=== PATIENT | female | born 1950 | race Caucasian/White ===

== ENCOUNTER 2018-07-18 12:44 | Emergency (ER) | payer OTHER ==
[~2018-07-18] VITALS: Ht 160 cm; Wt 68.9 kg
[~2018-07-18 12:44] MED LIST: ALPR0.5T2 PO; BUPR100T3 PO; GLIM2TAB PO; INSU10SU8 SUBQ; METF100028 PO; NAPR-54 PO; RANI-287 PO; WARF-18 PO; [UNRECOGNIZED DRUG - CODE] IV; [UNRECOGNIZED DRUG - CODE] TP
[2018-07-18 12:51] VITALS: BP 123/68
--- NOTE | 2018-07-18 13:11 | NUR ---
67/F BIB FRIEND C/O NAUSEA,HEADACHE & HEMATOMA S/P FALL BACKWARDS X TODAY. DENIES LOC. HX: DM2, ANXIETY, NON ALCOHOLIC CIRROHSIS, LOW PLT COUNT. SKIN IS PINK/WARM/DRY; AAOX4 WITH EVEN AND STEADY GAIT; LUNGS CLEAR BL; HR EVEN AND REGULAR. PATIENT STATES PAIN OF 10/10 AT THIS TIME; PATIENT POSITIONED FOR COMFORT; HOB ELEVATED; BEDRAILS UP X2; BED DOWN. ER MD MADE AWARE OF PT STATUS.
[2018-07-18] MEDS ORDERED: traMADol 50 MG TAB PO ONE (13:25)
--- NOTE | 2018-07-18 13:43 | NUR ---
LAB AT BEDSIDE
--- NOTE | 2018-07-18 13:48 | NUR ---
PT TAKEN TO CT, ACCOMPANIED BY LOADING INSPECTOR.
[2018-07-18 14:00] LABS: BASOPHILS % (AUTO) 1.1 % (0.0-2.0); EOSINOPHILS # (AUTO) 0.1 K/uL (0-0.4); EOSINOPHILS % (AUTO) 2.1 % (0.0-4.0); HEMOGLOBIN 11.8 g/dL (12.0-16.0); LYMPHOCYTES # (AUTO) 0.7 K/uL (2.5-16.5); LYMPHOCYTES % (AUTO) 19.8 % (20.5-51.1); MEAN CORPUSCULAR HEMOGLOBIN 29 pg (27-31); MEAN CORPUSCULAR HGB CONC 33 g/dL (33-37); MONOCYTES # (AUTO) 0.2 K/uL (0.8-1.0); MONOCYTES % (AUTO) 6.4 % (1.7-9.3); NEUTROPHILS # (AUTO) 2.3 K/uL (1.8-7.7); NEUTROPHILS % (AUTO) 70.6 % (42.2-75.2); PLATELET COUNT (AUTO) 35 K/uL (140-450); RED BLOOD CELL COUNT(AUTO) 4.05 MIL/uL (4.20-5.40); RED CELL DISTRIBUTION WIDTH 15.9 % (11.6-13.7); WHITE BLOOD COUNT (AUTO) 3.3 K/uL (4.8-10.8)
--- NOTE | 2018-07-18 14:04 | NUR ---
pt returned from ct via [facility], accompanied by radio control crane operator.
[2018-07-18 14:47] LABS: PROTHROMBIN TIME 10.6 secs (10.8-13.4)
[2018-07-18 15:28] VITALS: BP 118/55
--- NOTE | 2018-07-18 15:28 | NUR ---
Patient discharged with v/s stable. Written and verbal after care instructions given and explained. Patient verbalized understanding. Wheel Chair Assisted with to car. All questions addressed prior to discharge. Advised to follow up with PMD.
== END 2018-07-18 15:22 | disposition home or self-care (01) ==
LOC: MED 12:44
DX: S00.03XA Contusion of scalp, initial encounter (principal); D69.6 Thrombocytopenia, unspecified; E11.9 Type 2 diabetes mellitus without complications; I10 Essential (primary) hypertension; Z88.5 Allergy status to narcotic agent; Z88.0 Allergy status to penicillin; Z79.4 Long term (current) use of insulin; Z79.899 Other long term (current) drug therapy; W01.0XXA Fall on same level from slipping, tripping and stumbling without subsequent striking against object, initial encounter; Y93.89 Activity, other specified; Y92.89 Other specified places as the place of occurrence of the external cause; Y99.8 Other external cause status
CPT/HCPCS: 36415; 70450; 85025; 85610; 99285

== ENCOUNTER 2022-02-13 11:36 | Inpatient (IN) | payer OTHER ==
[~2022-02-13] VITALS: Ht 160 cm; Wt 76.7 kg
[~2022-02-13 11:36] MED LIST changes: -INSU10SU8 SUBQ; +NOV7030 SUBQ; -WARF-18 PO; +WARF-83 PO
[2022-02-13 12:09] VITALS: BP 129/55
--- NOTE | 2022-02-13 12:18 | NUR ---
PT W/C ASSISTED TO BED 4.
--- NOTE | 2022-02-13 12:45 | NUR ---
BIB DAUGHTER WITH C/O ABD DISTENTION X1 MONTH GETTING WORSE. PT HAS CIRRHOSIS OF THE LIVER. PT STATES SHE HAS NEVER HAD A PARACENTESIS BEFORE. PT RECEIVES LIVER CARE AT [facility] AND WAS LAST SEEN LAST FRIDAY. PT REPORTS ASSOCIATED NAUSEA, NO VOMITING AND SOB. RESP EVEN AND UNLABORED. NO RESP DISTRESS. PT C/O R SIDED ABD PAIN, 8/10 AND DESCRIBES NAWING. VSS. WILL CONT TO MONITOR
[2022-02-13 13:08] LABS: BASOPHILS % (AUTO) 0.9 % (0.0-2.0); EOSINOPHILS # (AUTO) 0.1 K/uL (0-0.4); EOSINOPHILS % (AUTO) 2.2 % (0.0-4.0); HEMATOCRIT 30.4 % (36-48); HEMOGLOBIN 9.5 g/dL (12.0-16.0); LYMPHOCYTES # (AUTO) 0.6 K/uL (2.5-16.5); LYMPHOCYTES % (AUTO) 20.7 % (20.5-51.1); MEAN CORPUSCULAR HEMOGLOBIN 26 pg (27-31); MEAN CORPUSCULAR HGB CONC 31 g/dL (33-37); MEAN CORPUSCULAR VOLUME 83.5 fL (80-94); MONOCYTES # (AUTO) 0.3 K/uL (0.8-1.0); MONOCYTES % (AUTO) 9.7 % (1.7-9.3); NEUTROPHILS % (AUTO) 66.5 % (42.2-75.2); PLATELET COUNT (AUTO) 53 K/uL (140-450); RED BLOOD CELL COUNT(AUTO) 3.64 MIL/uL (4.20-5.40); RED CELL DISTRIBUTION WIDTH 18.6 % (11.6-13.7)
[2022-02-13 13:21] LABS: PROTHROMBIN TIME 11.1 secs (10.8-13.4)
--- NOTE | 2022-02-13 15:00 | NUR ---
PT IN BED RESTING. REPORTS 8/10 ABD PAIN. NO N/V. RESP EVEN AND UNLABORED. VSS. WILL CONT TO MONITOR
[2022-02-13 15:14] LABS: ALBUMIN 3.1 g/dL (3.4-5.0); ANION GAP 10.1 (8-16); CARBON DIOXIDE 24.1 mmol/L (21-32); CREATININE 1.6 mg/dL (0.6-1.3); POTASSIUM 4.2 mmol/L (3.5-5.1); TOTAL BILIRUBIN 1.5 mg/dL (0.0-1.0)
[2022-02-13] MEDS ORDERED: ONDANSETRON 4 MG/2 ML VIAL IVP ONE (15:20)
[2022-02-13] MEDS ORDERED: MORPHINE SULFATE 4 MG/ML SYR IVP ONE (15:20)
[2022-02-13] MEDS ORDERED: MAG SULF 2000 MG/WATER PREMIX 50 ML IV PRN (15:40)
[2022-02-13] MEDS ORDERED: DOCUSATE SODIUM 100 MG GELCAP PO PRN (15:40)
[2022-02-13] MEDS ORDERED: ZOLPIDEM 5 MG TAB PO PRN (15:40)
[2022-02-13] MEDS ORDERED: ACETAMINOPHEN 325 MG TAB PO PRN (15:40)
[2022-02-13] MEDS ORDERED: ONDANSETRON 4 MG/2 ML VIAL IVP PRN (15:40)
[2022-02-13] MEDS ORDERED: NACL 0.9% 1,000 ML IV SCH (15:40)
[2022-02-13] MEDS ORDERED: POTASSIUM CHLORIDE 10 MEQ TABER PO PRN (15:40)
[2022-02-13] MEDS ORDERED: SODIUM PHOS / POTASSIUM PHOS 1 PKT PDR PO PRN (15:40)
[2022-02-13] MEDS ORDERED: LORazepam 1 MG TAB PO PRN (15:50)
--- NOTE | 2022-02-13 15:52 | NUR ---
COVID SWAB SENT TO LAB
[2022-02-13 16:11] LABS: BILIRUBIN,URINE NEGATIVE (NEGATIVE); BLOOD, URINE NEGATIVE (NEGATIVE); COLOR,URINE YELLOW (YELLOW); LEUKOCYTE ESTERASE ,URINE TRACE (NEGATIVE); NITRITE, URINE NEGATIVE (NEGATIVE); UGLUCOSE 1+ (NEGATIVE)
[2022-02-13 16:14] LABS: AMYLASE 28 U/L (25-115); LIPASE 92 U/L (73-393); PHOSPHORUS 3.1 mg/dL (2.5-4.9)
[2022-02-13 16:16] LABS: APPEARANCE,URINE HAZY (CLEAR)
[2022-02-13] MEDS ORDERED: DEXTROSE 50% 50 ML SYR IVP PRN (16:25)
[2022-02-13] MEDS: BLOOD GLUCOSE MONITORING 1 DEV DEV FS SCH ×3 (16:30→21:00)
[2022-02-13] MEDS ORDERED: FUROSEMIDE 20 MG/2 ML VIAL IVP SCH (17:00)
[2022-02-13 17:30] VITALS: BP 112/55
--- NOTE | 2022-02-13 17:30 | NUR ---
PATIENT ARRIVED ON A GURNEY WHEELED BY 2 ED NURSE. PATIENT AMBULATE FROM GURNEY TO HER BED. ALERT ORIENTED. RESPIRATION EVEN AND NOT LABORED. ASSISTED PATIENT TO BE SITUATED ON HER BED. FÁTIMA MONTEMAYOR GAVE BED SIDE REPORT FOR CONTINUITY OF CARE.
--- NOTE | 2022-02-13 17:35 | NUR ---
ORIENTED PATIENT TO ROOM CALL LIGHT, TV, VISITING HOURS AND MEAL TIME.
--- NOTE | 2022-02-13 17:35 | NUR ---
PT TRANSPORTED TO ROOM 125B ON RESEARCH CHEMIST WITH RN AND EMT. VSS. BEDSIDE REPORT GIVEN TO MARIXA SHINE, QUESTIONS ANSWERED. PT STABLE FOR TRANSFER TO FLOOR.
--- NOTE | 2022-02-13 17:50 | NUR ---
LEFT MESSAGE TO DR. MAYFIELD IF THE PATIENT CAN EAT. PATIENT VERBALIZED VERY HUNGRY. DR. MAYFIELD ORDER REGULAR DIET AND DISCONTINUE IV HYDRATION.
--- NOTE | 2022-02-13 18:01 | NUR ---
SCHEDULED MEDICATIONS DUE GIVEN. WILL CONTINUE TO MONITOR.
[2022-02-13 18:34] LABS: RBC,URINE NONE SEEN /HPF (0-5)
--- NOTE | 2022-02-13 19:20 | NUR ---
PATIENT ON STABLE CONDITION GAVE REPORT TO SBA UNDERWRITER NURSE FOR CONTINUITY OF CARE.
[2022-02-13 20:00] VITALS: BP 112/50
--- NOTE | 2022-02-13 20:00 | NUR ---
Rceive in bed is awake alert on Room AIR Abdomen is distended with Ascites. States iti is uncomfortabe is looking forward to have Paracentesis
[2022-02-13] MEDS: INSULIN LISPRO SLIDING SCALE 100 UNITS/ML VIAL SUBQ PRN (20:27)
[2022-02-13] MEDS: MORPHINE SULFATE 2 MG/ML SYR IVP PRN (22:01)
[2022-02-14] VITALS: BP 122/57
[2022-02-14 04:00] VITALS: BP 123/62
--- NOTE | 2022-02-14 05:40 | NUR ---
slept for short intervals wants to know what time she will have paracentesis Explained to her she will be informed before it is done
[2022-02-14 06:10] LABS: BASOPHILS % (AUTO) 1.3 % (0.0-2.0); EOSINOPHILS # (AUTO) 0.1 K/uL (0-0.4); EOSINOPHILS % (AUTO) 2.8 % (0.0-4.0); HEMATOCRIT 27.6 % (36-48); HEMOGLOBIN 8.9 g/dL (12.0-16.0); LYMPHOCYTES # (AUTO) 0.6 K/uL (2.5-16.5); LYMPHOCYTES % (AUTO) 20.9 % (20.5-51.1); MEAN CORPUSCULAR HEMOGLOBIN 27 pg (27-31); MEAN CORPUSCULAR HGB CONC 32 g/dL (33-37); MEAN CORPUSCULAR VOLUME 82.6 fL (80-94); MONOCYTES # (AUTO) 0.3 K/uL (0.8-1.0); MONOCYTES % (AUTO) 12.2 % (1.7-9.3); NEUTROPHILS # (AUTO) 1.8 K/uL (1.8-7.7); NEUTROPHILS % (AUTO) 62.8 % (42.2-75.2); PLATELET COUNT (AUTO) 48 K/uL (140-450); RED BLOOD CELL COUNT(AUTO) 3.34 MIL/uL (4.20-5.40); RED CELL DISTRIBUTION WIDTH 18.2 % (11.6-13.7); WHITE BLOOD COUNT (AUTO) 2.8 K/uL (4.8-10.8)
[2022-02-14 06:22] LABS: ALBUMIN 2.8 g/dL (3.4-5.0); ANION GAP 10.6 (8-16); CARBON DIOXIDE 25.1 mmol/L (21-32); CREATININE 1.6 mg/dL (0.6-1.3); POTASSIUM 4.7 mmol/L (3.5-5.1); TOTAL BILIRUBIN 1.3 mg/dL (0.0-1.0)
[2022-02-14] MEDS: BLOOD GLUCOSE MONITORING 1 DEV DEV FS SCH ×4 (07:30→20:08)
[2022-02-14 08:00] VITALS: BP 117/60
[2022-02-14] MEDS: MORPHINE SULFATE 2 MG/ML SYR IVP PRN ×3 (09:34→22:17)
--- NOTE | 2022-02-14 09:37 | NUR ---
PATIENT HAS BEEN SCREENED AND CATEGORIZED HIGH NUTRITION RISK. PATIENT WILL BE SEEN WITHIN 1-2 DAYS OF ADMISSION. / REFERRAL FOR NAUSEA OVER THREE DAYS [address]
[2022-02-14 12:00] VITALS: BP 115/64
[2022-02-14] MEDS ORDERED: ALBUMIN HUMAN 25% 50 ML IV SCH (12:30)
[2022-02-14] MEDS: FUROSEMIDE 40 MG/4 ML VIAL IVP SCH (13:00)
--- NOTE | 2022-02-14 13:41 | NUR ---
DC PLANNING: THE PATIENT PRESENTED WITH C/O PROGRESSIVE ABDOMINAL DISTENTION, SOB AND ABDOMINAL PAIN. H/O LIVER FAILURE AND CIRRHOSIS, THE PATIENT HAS BEEN UNABLE TO ARRANGE FOR A PARACENTESIS AT [facility] WHICH IS WHERE SHE GOES FOR HEPATOLOGY MANAGEMENT. H/O DM AND HTN, ABDOMINAL US DONE, PLAN FOR PARACENTESIS TODAY. STARTED ON LASIX IV, ALBUMIN, CONSULTS ORDERED WITH GI AND NEPHRO. CM SPOKE WITH THE PATIENT AT BEDSIDE AND CONFIRMED HER ADDRESS AND PHONE NUMBER. HER EMERGENCY CONTACT IS HER SON CHETAN, PHONE [phone]. SHE LIVES IN A 2 STORY HOUSE WITH SON AND DAUGHTER IN [place]. SHE IS INDEPENDENT WITH ADL'S AND AMBULATION. SHE USES A CANE AND HAS OTHER DME OF A FWW AND WC. SHE WAS ON SERVICE WITH [employer] AND [employer] AND HAS BEEN TO [facility] AND ANOTHER SNF SHE CAN'T REMEMBER THE NAME OF. HER FAMILY TRANSPORTS HER TO APPOINTMENTS BUT SHE IS ALSO ABLE TO DRIVE. HER PMD IS JESSE ESIPNOZA IN [place] AND SHE SEES HIM MONTHLY. SHE IS ALSO FOLLOWED BY [facility] AND HAS A PLANNED PROCEDURE OF REMOVING A SCREW FROM [facility]. SHE WILL GET CARDIAC CLEARANCE ON FEBRUARY 21. THE PATIENT IS ON ACTIGALL AND LACTULOSE AT HOME BUT HAS ISSUES WITH COMPLIANCE TAKING LACTULOSE BECAUSE OF THE SIDE EFFECTS. THE PATIENT WILL DC HOME WHEN CLINICALLY STABLE, RENUKA WILL FOLLOW. Addendum: 02/15/22 at 1118 by Alexa Barrios RN DC PLANNING: RECEIVED A MESSAGE FROM [facility] THE [facility] TO BE FAXED. CALLED ERASTO GRAYSON AT [place] [phone] UPDATED PT'S CLINICAL AND FAXED ALL THE CLINICALS [phone] . PER ERASTO THE AUTH # [id number]. CM TO FOLLOW
--- NOTE | 2022-02-14 14:46 | NUR ---
PT BLOOD SUGAR SCHEDULE SHOWED 10\15 SO CHARTED NON ADMIT, [id number]
--- NOTE | 2022-02-14 14:48 | NUR ---
PT NOW IN PROCEDURE WILL TAKE BLOOD SUGAR TEST WHEN THORACENTESIS [id number]
--- NOTE | 2022-02-14 15:14 | NUR ---
ATTEMPTED TO SEE PATIENT FOR PHYSICAL THERAPY EVALUATION HOWEVER PATIENT CURRENTLY UNDERGOING PARACENTESIS AT THIS TIME. WILL FOLLOW UP TOMORROW IF APPROPRIATE; RN AWARE.
[2022-02-14] MEDS: INSULIN LISPRO SLIDING SCALE 100 UNITS/ML VIAL SUBQ PRN ×2 (15:55→20:17)
[2022-02-14 16:00] VITALS: BP 106/58
[2022-02-14] MEDS ORDERED: ALBUMIN HUMAN 25% 100 ML IV SCH (16:00)
[2022-02-14 20:00] VITALS: BP 116/76
--- NOTE | 2022-02-14 20:00 | NUR ---
RECEIVED BEDSIDE REPORT FROM DAY RN FOR CONTINUITY OF CARE. RECEIVED PATIENT A/A/OX4,SITTING IN BED WATCHING TV. PT NOT IN ANY DISTRESS AND NO COMPLAIN AT THIS TIME. DENIES PAIN AT THIS TIME. PT SP PARACENTESIS EARLIER. LEFT SIDE OF THE ABDOMEN PUNCTURE SITE DRESSING, C/D/I. NO BLEEDING OR OOZING NOTED. DISCUSSED POC WITH THE PT AND PT INSTRUCTED TO CALL FOR ASSISTANCE AT ALL TIMES. PT VERBALIZED UNDERSTANDING.CALL LIGHT WITHIN REACH. WILL CONTINUE POC AND MONITORING.
[2022-02-14 21:26] LABS: SPECIMENTYPE,BODY FLUID PARACENTESIS
[2022-02-14 21:27] LABS: APPEARANCE,SPUN,BODY FLUID CLEAR (CLEAR); APPEARANCE,UNSPUN,BODY FLUID CLEAR (CLEAR); COLOR,BODY FLUID YELLOW (LT YELLOW); GLUCOSE,BODY FLUID 243 mg/dL; TOTAL VOLUME,BODY FLUID 1050 mL
[2022-02-14 21:31] LABS: WBC, BODY FLUID 0 /cu. mm.
--- NOTE | 2022-02-14 22:00 | NUR ---
ALL DUE MEDS GIVEN ORDERED. NO ADVERSE DRUG REACTION NOTED AND NO COMPLAIN FROM THE PATIENT. WILL COTNINUE MONITORING.
[2022-02-14 22:03] LABS: RBC, BODY FLUID 129 /cu. mm.
[2022-02-15] VITALS: BP 113/72
--- NOTE | 2022-02-15 | NUR ---
PATIENT VITAL SIGNS STABLE, AFEBRILE, SATING 97% ON RA. NOT IN ANY DISTRESS AND NO COMPLAIN AT THIS TIME. CALL LIGHT WITHIN REACH. WILL CONTINUE MONITORING.
--- NOTE | 2022-02-15 02:15 | NUR ---
PATIENT ASLEEP AT THIS TIME. VISIBLE CHEST RISE AND FALL NOTED. NOT IN ANY DISTRESS WILL CONTINUE MONITORING.
[2022-02-15 04:00] VITALS: BP 105/51
--- NOTE | 2022-02-15 04:00 | NUR ---
PATIENT VITAL SIGNS STABLE, AFEBRILE, SATING 96% ON RA. SR WITH BBB, HR-81. PT NOT IN ANY DISTRESS AND NO COMPLAIN AT THIS TIME. CALL LIGHT WITHIN REACH. WILL CONTINUE MONITORING.
[2022-02-15] MEDS: BLOOD GLUCOSE MONITORING 1 DEV DEV FS SCH ×4 (05:58→20:10)
--- NOTE | 2022-02-15 06:00 | NUR ---
NO ACUTE EVENTS THROUGHOUT THE NIGHT. PATIENT NOT IN ANY DISTRESS AND NO COMPLAIN AT THIS TIME. ALL NEEDS ATTENDED. PATIENT STABLE. WILL ENDORSE THE PATIENT TO THE ONCOMING RN FOR CONTINUITY OF CARE.
[2022-02-15] MEDS: INSULIN LISPRO SLIDING SCALE 100 UNITS/ML VIAL SUBQ PRN ×3 (06:03→20:12)
[2022-02-15 06:15] LABS: BASOPHILS % (AUTO) 0.9 % (0.0-2.0); EOSINOPHILS # (AUTO) 0.1 K/uL (0-0.4); EOSINOPHILS % (AUTO) 2.1 % (0.0-4.0); HEMATOCRIT 27.5 % (36-48); HEMOGLOBIN 8.9 g/dL (12.0-16.0); LYMPHOCYTES # (AUTO) 0.5 K/uL (2.5-16.5); LYMPHOCYTES % (AUTO) 16.9 % (20.5-51.1); MEAN CORPUSCULAR HEMOGLOBIN 27 pg (27-31); MEAN CORPUSCULAR HGB CONC 32 g/dL (33-37); MEAN CORPUSCULAR VOLUME 82.3 fL (80-94); MONOCYTES # (AUTO) 0.3 K/uL (0.8-1.0); MONOCYTES % (AUTO) 11.2 % (1.7-9.3); NEUTROPHILS # (AUTO) 2.1 K/uL (1.8-7.7); NEUTROPHILS % (AUTO) 68.9 % (42.2-75.2); PLATELET COUNT (AUTO) 46 K/uL (140-450); RED BLOOD CELL COUNT(AUTO) 3.34 MIL/uL (4.20-5.40); RED CELL DISTRIBUTION WIDTH 17.9 % (11.6-13.7); WHITE BLOOD COUNT (AUTO) 3.1 K/uL (4.8-10.8)
[2022-02-15 06:35] LABS: ANION GAP 10.1 (8-16); CARBON DIOXIDE 28.6 mmol/L (21-32); CREATININE 1.7 mg/dL (0.6-1.3); MAGNESIUM 1.6 mg/dL (1.8-2.4); POTASSIUM 4.7 mmol/L (3.5-5.1); TOTAL BILIRUBIN 1.4 mg/dL (0.0-1.0)
--- NOTE | 2022-02-15 07:29 | NUR ---
ENDORSED PATIENT TO DAY NURSE FOR CONTINUITY OF CARE. PATIENT STABLE. SIGNING OFF.
--- NOTE | 2022-02-15 07:30 | NUR ---
RECEIVED BEDSIDE REPORT FROM DATA ENTRY ANALYST NURSE FOR CONTINUOUS OF CARE, PT RESTING, NO DISTRESS NOTED, IV TO RIGHT AC 22G PATENT INTACT, SL. PT ON ROOM AIR, NO SOB NOTED, INITIAL ASSESSMENT DONE, ALL SAFETY PRECAUTION MET, CALL LIGHT WITHIN REACH, WILL CONTINUE TO MONITOR.
[2022-02-15 08:00] VITALS: BP 118/76
[2022-02-15] MEDS: FUROSEMIDE 40 MG/4 ML VIAL IVP SCH (09:30)
[2022-02-15] MEDS: SPIRONOLACTONE 25 MG TAB PO SCH (09:30)
--- NOTE | 2022-02-15 10:37 | NUR ---
02/15/22 RD INITIAL ASSESSMENT COMPLETED PLEASE REFER TO NUTRITION ASSESSMENT UNDER CARE ACTIVITY FOR ESTIMATED NUTRITIONAL NEEDS. 1. CONTINUE CCHO 60GM DIET TOLERATED -IF PT PO INTAKE IS < 75%, RECOMMEND GLUCERNA BID PER PROTOCOL 2. MONITOR BLOOD GLUCOSE LEVELS -IF NOT CONTROLLED, RECOMMEND CCHO 45GM DIET 3. RD TO FOLLOW-UP 3-5 DAYS, MODERATE RISK ZACK ALAS RD
[2022-02-15 12:00] VITALS: BP 120/70
[2022-02-15] MEDS ORDERED: URSO300C14 PO (12:54)
[2022-02-15] MEDS ORDERED: FURO40TA9 PO (12:54)
[2022-02-15] MEDS ORDERED: METO-744 PO (12:54)
[2022-02-15] MEDS ORDERED: [UNRECOGNIZED DRUG - CODE] PO (12:54)
[2022-02-15] MEDS ORDERED: PANT40EC56 PO (12:54)
[2022-02-15] MEDS ORDERED: DAPA10TA PO (12:54)
[2022-02-15] MEDS ORDERED: INSU100S22 SUBQ (12:58)
[2022-02-15] MEDS: MORPHINE SULFATE 2 MG/ML SYR IVP PRN ×2 (13:16→20:33)
--- NOTE | 2022-02-15 13:16 | NUR ---
PT C/O PAIN, MEDICATION ADMINISTERED, PT TOLERATED WELL, WILL CONTINUE TO MONITOR.
[2022-02-15 16:00] VITALS: BP 99/47
[2022-02-15] MEDS ORDERED: HYDROXYZINE HYDROCHLORIDE 10 MG TAB PO PRN (17:00)
--- NOTE | 2022-02-15 17:01 | NUR ---
PT C/O ITCHY, PER DR ARBOLEDA TO ORDER ATARAX 10MG Q8H FOR ITCHINESS, WILL CONTINUE WITH ORDERS.
[2022-02-15] MEDS: HYDROXYZINE HYDROCHLORIDE 10 MG TAB PO PRN (17:23)
[2022-02-15] MEDS: RIVAROXABAN 15 MG TAB PO SCH (17:24)
--- NOTE | 2022-02-15 17:33 | NUR ---
PT C/O ITCHYNESS, MEDICATION GIVEN PER DR ORDER, WILL CONTINUE TO MONITOR.
--- NOTE | 2022-02-15 19:25 | NUR ---
ENDORSED PT TO CODING QUALITY ANALYST NURSE FOR CONTINUOS OF CARE.
[2022-02-15 20:00] VITALS: BP 101/42
--- NOTE | 2022-02-15 20:00 | NUR ---
RECEIVED BEDSIDE REPORT FROM DAY RN FOR CONTINUITY OF CARE. RECEIVED PATIENT A/A/OX4,SITTING IN BED WATCHING TV. PT NOT IN ANY DISTRESS AND NO COMPLAIN AT THIS TIME. DENIES PAIN AT THIS TIME. LEFT SIDE OF THE ABDOMEN PUNCTURE SITE DRESSING FROM PARACENTESIS , C/D/I. NO BLEEDING OR OOZING NOTED. DISCUSSED POC WITH THE PT. FALL PRECAUTION IMPLEMENTED. PT INSTRUCTED TO CALL FOR ASSISTANCE AT ALL TIMES. PT VERBALIZED UNDERSTANDING.CALL LIGHT WITHIN REACH. WILL CONTINUE POC AND MONITORING.
[2022-02-15] MEDS: ursodioL 300 MG CAP PO SCH (20:13)
--- NOTE | 2022-02-15 22:00 | NUR ---
ALL DUE MEDS GIVEN ORDERED. NO ADVERSE DRUG REACTION NOTED AND NO COMPLAIN FROM THE PATIENT. WILL COTNINUE MONITORING.
[2022-02-16] VITALS: BP 108/52
--- NOTE | 2022-02-16 | NUR ---
PATIENT VITAL SIGNS STABLE, AFEBRILE, SATING 96% ON RA. SR WITH BBB ON TELE, HR-76. PT NOT IN ANY DISTRESS AND NO COMPLAIN AT THIS TIME. CALL LIGHT WITHIN REACH. WILL CONTINUE MONITORING.
--- NOTE | 2022-02-16 02:00 | NUR ---
PATIENT ASLEEP AT THIS TIME. VISIBLE CHEST RISE AND FALL NOTED. NOT IN ANY DISTRESS WILL CONTINUE MONITORING.
[2022-02-16 04:00] VITALS: BP 120/51
--- NOTE | 2022-02-16 04:00 | NUR ---
PATIENT VITAL SIGNS STABLE, AFEBRILE, SATING 96% ON RA. NOT IN ANY DISTRESS AND NO COMPLAIN OF PAIN AT THIS TIME. CALL LIGHT WITHIN REACH. WILL CONTINUE MONITORING.
[2022-02-16 06:03] LABS: EOSINOPHILS # (AUTO) 0.1 K/uL (0-0.4); EOSINOPHILS % (AUTO) 2.4 % (0.0-4.0); HEMATOCRIT 28.4 % (36-48); HEMOGLOBIN 9.2 g/dL (12.0-16.0); LYMPHOCYTES # (AUTO) 0.7 K/uL (2.5-16.5); LYMPHOCYTES % (AUTO) 20.7 % (20.5-51.1); MEAN CORPUSCULAR HEMOGLOBIN 27 pg (27-31); MEAN CORPUSCULAR HGB CONC 32 g/dL (33-37); MEAN CORPUSCULAR VOLUME 82.4 fL (80-94); MONOCYTES # (AUTO) 0.3 K/uL (0.8-1.0); MONOCYTES % (AUTO) 9.4 % (1.7-9.3); NEUTROPHILS # (AUTO) 2.2 K/uL (1.8-7.7); NEUTROPHILS % (AUTO) 66.5 % (42.2-75.2); PLATELET COUNT (AUTO) 46 K/uL (140-450); RED BLOOD CELL COUNT(AUTO) 3.45 MIL/uL (4.20-5.40); RED CELL DISTRIBUTION WIDTH 17.8 % (11.6-13.7); WHITE BLOOD COUNT (AUTO) 3.3 K/uL (4.8-10.8)
[2022-02-16 07:08] LABS: ALBUMIN 2.8 g/dL (3.4-5.0); ANION GAP 10.2 (8-16); CARBON DIOXIDE 27.9 mmol/L (21-32); CREATININE 1.6 mg/dL (0.6-1.3); MAGNESIUM 2.2 mg/dL (1.8-2.4); POTASSIUM 5.1 mmol/L (3.5-5.1)
[2022-02-16] MEDS: BLOOD GLUCOSE MONITORING 1 DEV DEV FS SCH ×2 (07:33→12:19)
--- NOTE | 2022-02-16 07:34 | NUR ---
ENDORSED PATIENT TO DAY NURSE FOR CONTINUITY OF CARE. PATIENT STABLE. SIGNING OFF.
--- NOTE | 2022-02-16 07:35 | NUR ---
RECEIVED BEDSIDE REPORT FROM DRAGLINE ENGINEER NURSE FOR CONTINUOUS OF CARE, PT RESTING, NO DISTRESS NOTED, IV TO LEFT FA 24G PATENT INTACT, SL. PT ON ROOM AIR, NO SOB NOTED, INITIAL ASSESSMENT DONE, ALL SAFETY PRECAUTION MET, CALL LIGHT WITHIN REACH, WILL CONTINUE TO MONITOR.
[2022-02-16 08:00] VITALS: BP 110/48
[2022-02-16] MEDS: HYDROXYZINE HYDROCHLORIDE 10 MG TAB PO PRN (08:30)
--- NOTE | 2022-02-16 08:30 | NUR ---
DUE MEDICATIONS ADMINISTERED, PT TOLERATED WELL, PT STATED HAVING ITCHINESS, MEDICATION ADMINISTERED, PER DR ORDER, WILL CONTINUE TO MONITOR
[2022-02-16] MEDS: SPIRONOLACTONE 25 MG TAB PO SCH (08:31)
[2022-02-16] MEDS: FUROSEMIDE 40 MG/4 ML VIAL IVP SCH (08:32)
[2022-02-16] MEDS: ursodioL 300 MG CAP PO SCH (08:32)
[2022-02-16] MEDS: RIVAROXABAN 15 MG TAB PO SCH (08:34)
[2022-02-16] MEDS ORDERED: NON-FORMULARY ITEM (Dapagliflozin Propanediol (Farxiga) 1 TAB) PO SCH (09:00)
[2022-02-16] MEDS ORDERED: INSULIN LANTUS 100 UNITS/ML 10 ML VIAL SUBQ SCH (09:00)
[2022-02-16] MEDS ORDERED: PANTOPRAZOLE 40 MG TABEC PO SCH (09:00)
[2022-02-16] MEDS ORDERED: CITALOPRAM 20 MG TAB PO SCH (09:00)
[2022-02-16] MEDS ORDERED: INSULIN GLARGINE HUM REC ANLOG 50 UNIT SUBQ SCH (09:00)
[2022-02-16] MEDS ORDERED: CITALOPRAM HYDROBROMIDE PO SCH (09:00)
[2022-02-16 12:00] VITALS: BP 110/49
[2022-02-16 12:11] LABS: APPEARANCE,URINE CLEAR (CLEAR); BILIRUBIN,URINE NEGATIVE (NEGATIVE); BLOOD, URINE NEGATIVE (NEGATIVE); COLOR,URINE YELLOW (YELLOW); LEUKOCYTE ESTERASE ,URINE NEGATIVE (NEGATIVE); NITRITE, URINE NEGATIVE (NEGATIVE); UGLUCOSE TRACE (NEGATIVE)
[2022-02-16] MEDS: INSULIN LISPRO SLIDING SCALE 100 UNITS/ML VIAL SUBQ PRN (12:56)
[2022-02-16] MEDS ORDERED: FURO40TA9 PO (13:24)
[2022-02-16] MEDS ORDERED: RIVA20TA PO (13:24)
[2022-02-16] MEDS ORDERED: CEPH-588 PO (13:24)
--- NOTE | 2022-02-16 13:30 | NUR ---
DC PAPERS SIGNED, PT STATED UNDERSTANDING, ALL QUESTIONS ANSWERED, IV TAKEN OUT, CATH INTACT, WRISTBAND TAKEN OFF. WILL CONTINUE TO MONITOR.
[2022-02-16 13:50] VITALS: BP 110/49
--- NOTE | 2022-02-16 14:15 | NUR ---
PT LEFT UNIT IN STABLE CONDITION, WILL CONTINUE TO MONTIOR. Addendum: 02/16/22 at 1616 by Maura Owens RN JOE RODRIGUEZ
--- NOTE | 2022-02-16 15:05 | NUR ---
PT LEFT UNIT IN STABLE CONDITION, BEING PICKED UP IN FRONT LOBBY BY FAMILY.
== END 2022-02-16 15:05 | disposition home or self-care (01) | DRG 432 ==
LOC: MED 11:36 → MTU 15:42 → MMU 16:49
PROVIDERS: ADMIT Family Medicine; ATTEND Family Medicine
PROC: 0W9G3ZZ Drainage of Peritoneal Cavity, Percutaneous Approach (ICD-10-PCS; principal; 2022-02-14)
DX: K74.69 Other cirrhosis of liver (principal); N17.0 Acute kidney failure with tubular necrosis; R18.8 Other ascites; E87.1 Hypo-osmolality and hyponatremia; E44.1 Mild protein-calorie malnutrition; D61.818 Other pancytopenia; I82.411 Acute embolism and thrombosis of right femoral vein; I85.10 Secondary esophageal varices without bleeding; K75.81 Nonalcoholic steatohepatitis (NASH); D73.1 Hypersplenism; E86.0 Dehydration; I12.9 Hypertensive chronic kidney disease with stage 1 through stage 4 chronic kidney disease, or unspecified chronic kidney disease; E11.22 Type 2 diabetes mellitus with diabetic chronic kidney disease; N18.30 Chronic kidney disease, stage 3 unspecified; I25.10 Atherosclerotic heart disease of native coronary artery without angina pectoris; Z20.822 Contact with and (suspected) exposure to COVID-19; Z88.5 Allergy status to narcotic agent; Z88.0 Allergy status to penicillin; Z79.899 Other long term (current) drug therapy; Z95.5 Presence of coronary angioplasty implant and graft; Z68.29 Body mass index [BMI] 29.0-29.9, adult
CPT/HCPCS: 36415; 49083; 71045; 76705; 76770; 80053; 81001; 81003; 82150; 82570; 82945; 82948; 83036; 83615; 83690; 83735; 83880; 84100; 84157; 84300; 84484; 85025; 85610; 85730; 87070; 87075; 87081; 87086; 87205; 89051; 93005; 93970; 96374; 96375; 97163-GP; 99285; J1815; J1940; J2001; J2270; J2405; J3475; P9046; Q0092

== ENCOUNTER 2022-03-14 10:10 | Inpatient (IN) | payer OTHER ==
[~2022-03-14] VITALS: Ht 154.9 cm; Wt 76.2 kg
[~2022-03-14 10:10] MED LIST changes: +CEPH-588 PO; +DAPA10TA PO; +FURO40TA9 PO; +INSU100S22 SUBQ; +METO-744 PO; -NAPR-54 PO; +PANT40EC56 PO; +RIVA20TA PO; +URSO300C14 PO; -WARF-83 PO; +[UNRECOGNIZED DRUG - CODE] PO
[2022-03-14 10:30] VITALS: BP 133/62
--- NOTE | 2022-03-14 10:38 | NUR ---
PT W/C ASSISTED TO ER BED 7
--- NOTE | 2022-03-14 11:03 | NUR ---
71 Y/O FEMALE C/O OF ABD DISTENTION AND PAIN, STATED THAT SHE HAS NON-ALCOHOLIC LIVER CIRRHOSIS. LAST DRAINED 3 GALLONS LAST MONTH. DENIES ANY NAUSEA/VOMITING/DIARRHEA ALLERGY: PCN, HYDROMORPHONE PMH: HTN, DM, NON-ALOCHOLIC LIVER CIRRHOSIS, "KIDNEY ISSUES", 2STENTS IN HEART
--- NOTE | 2022-03-14 11:05 | NUR ---
DR FOOTE AT BEDSIDE FOR FURTHER EVAL
[2022-03-14 11:30] LABS: BASOPHILS # (AUTO) 0.1 K/uL (0.00-0.22); BASOPHILS % (AUTO) 3.4 % (0.0-2.0); EOSINOPHILS # (AUTO) 0.1 K/uL (0-0.4); EOSINOPHILS % (AUTO) 1.8 % (0.0-4.0); HEMATOCRIT 25.4 % (36-48); HEMOGLOBIN 8.2 g/dL (12.0-16.0); LYMPHOCYTES # (AUTO) 0.3 K/uL (2.5-16.5); LYMPHOCYTES % (AUTO) 9.8 % (20.5-51.1); MEAN CORPUSCULAR HEMOGLOBIN 26 pg (27-31); MEAN CORPUSCULAR HGB CONC 32 g/dL (33-37); MEAN CORPUSCULAR VOLUME 80.8 fL (80-94); MONOCYTES # (AUTO) 0.4 K/uL (0.8-1.0); MONOCYTES % (AUTO) 12.9 % (1.7-9.3); NEUTROPHILS # (AUTO) 2.2 K/uL (1.8-7.7); NEUTROPHILS % (AUTO) 72.1 % (42.2-75.2); PLATELET COUNT (AUTO) 55 K/uL (140-450); RED BLOOD CELL COUNT(AUTO) 3.14 MIL/uL (4.20-5.40); RED CELL DISTRIBUTION WIDTH 17.7 % (11.6-13.7); WHITE BLOOD COUNT (AUTO) 3.1 K/uL (4.8-10.8)
[2022-03-14 11:43] LABS: PROTHROMBIN TIME 12.1 secs (10.8-13.4)
[2022-03-14 11:45] LABS: ALBUMIN 2.8 g/dL (3.4-5.0); TOTAL BILIRUBIN 1.6 mg/dL (0.0-1.0)
[2022-03-14] MEDS ORDERED: LIDOCAINE MPF 1% 5 ML ONE ×2 (12:15→12:50)
--- NOTE | 2022-03-14 12:45 | NUR ---
DR FOOTE AT BEDSIDE FOR PROCEDURE
[2022-03-14] MEDS ORDERED: LORazepam 2 MG/ML VIAL IVP ONE (13:20)
[2022-03-14] MEDS ORDERED: POTASSIUM CHLORIDE 10 MEQ TABER PO PRN (14:05)
[2022-03-14] MEDS ORDERED: DOCUSATE SODIUM 100 MG GELCAP PO PRN (14:05)
[2022-03-14] MEDS ORDERED: ACETAMINOPHEN 325 MG TAB PO PRN (14:05)
[2022-03-14 14:51] LABS: MAGNESIUM 2.3 mg/dL (1.8-2.4); PHOSPHORUS 3.7 mg/dL (2.5-4.9)
--- NOTE | 2022-03-14 14:59 | NUR ---
URINE WALKED TO LAB
[2022-03-14] MEDS: ONDANSETRON 4 MG/2 ML VIAL IM/IVP PRN (15:10)
[2022-03-14] MEDS: HYDROcodone/APAP 7.5/325 MG 1 TAB PO PRN ×2 (15:11→20:38)
[2022-03-14] MEDS ORDERED: DAPA10TA PO (15:27)
[2022-03-14] MEDS ORDERED: SPIR50TA PO (15:31)
[2022-03-14] MEDS ORDERED: TORS20TA3 PO (15:31)
--- NOTE | 2022-03-14 16:08 | NUR ---
DR KAUFMAN AT BEDSIDE FOR PT EVAL
[2022-03-14 17:03] LABS: APPEARANCE,URINE CLEAR (CLEAR); BILIRUBIN,URINE NEGATIVE (NEGATIVE); BLOOD, URINE NEGATIVE (NEGATIVE); COLOR,URINE YELLOW (YELLOW); LEUKOCYTE ESTERASE ,URINE NEGATIVE (NEGATIVE); NITRITE, URINE NEGATIVE (NEGATIVE); UGLUCOSE 3+ (NEGATIVE)
[2022-03-14 17:35] LABS: BARBITURATE, URINE NEGATIVE ng/ml (NEG <=200); BENZODIAZEPINE, URINE NEGATIVE ng/mL (NEG <=200); CANNABINOID, URINE NEGATIVE ng/mL (NEG <=50); COCAINE, URINE NEGATIVE ng/mL (NEG <=300); OPIATE, URINE NEGATIVE ng/mL (NEG <=2000); PHENCYCLIDINE SCREEN,URINE NEGATIVE ng/mL (NEG <=25)
[2022-03-14] MEDS ORDERED: DEXTROSE 50% 50 ML SYR IVP PRN (17:35)
--- NOTE | 2022-03-14 17:36 | NUR ---
ULTRASOUND AT BEDSIDE
--- NOTE | 2022-03-14 17:50 | NUR ---
OFFERED PT CRACKERS AND APPLE JUICE, TOLERATED WELL
--- NOTE | 2022-03-14 19:30 | NUR ---
Pt report given to MARY LAYNE. Transfer of care at this time.
--- NOTE | 2022-03-14 20:49 | NUR ---
PT AMBULATE TO THE BATHROOM
[2022-03-14 22:03] LABS: APPEARANCE,UNSPUN,BODY FLUID HAZY (CLEAR); COLOR,BODY FLUID COLORLESS (LT YELLOW); SPECIMENTYPE,BODY FLUID PERITONEUM
[2022-03-14 22:04] LABS: TOTAL VOLUME,BODY FLUID 2.9 mL
[2022-03-14] MEDS: BLOOD GLUCOSE MONITORING 1 DEV DEV FS SCH (22:06)
[2022-03-14 22:08] LABS: GLUCOSE,BODY FLUID 194 mg/dL
[2022-03-14] MEDS: SPIRONOLACTONE 50 MG TAB PO SCH (22:10)
[2022-03-14] MEDS: ursodioL 300 MG CAP PO SCH (22:12)
--- NOTE | 2022-03-14 22:12 | NUR ---
Patient appears to be resting comfortably in bed. Vital Signs within normal limits. Respirations even and unlabored.
[2022-03-14] MEDS: ZOLPIDEM 5 MG TAB PO PRN (22:13)
[2022-03-14] MEDS: INSULIN LISPRO SLIDING SCALE 100 UNITS/ML VIAL SUBQ PRN (22:19)
[2022-03-14 22:26] LABS: WBC, BODY FLUID 0 /cu. mm.
[2022-03-14 22:27] LABS: RBC, BODY FLUID 2416 /cu. mm.
--- NOTE | 2022-03-15 00:50 | NUR ---
Patient appears to be resting comfortably in bed. Vital Signs within normal limits. Respirations even and unlabored. LIGHTS DIM. HOB ELEVATED
--- NOTE | 2022-03-15 03:00 | NUR ---
Patient appears to be resting comfortably in bed. Vital Signs within normal limits. Respirations even and unlabored.
--- NOTE | 2022-03-15 04:50 | NUR ---
Patient appears to be resting comfortably in bed. Vital Signs within normal limits. Respirations even and unlabored.
--- NOTE | 2022-03-15 07:19 | NUR ---
Pt report given to ROVERTO JACKSON. Transfer of care at this time.
--- NOTE | 2022-03-15 07:20 | NUR ---
REPORT RECEIVED FROM MARY LAYNE. ASSUMED CARE AT THIS TIME
[2022-03-15 07:27] LABS: BASOPHILS % (AUTO) 1.2 % (0.0-2.0); EOSINOPHILS % (AUTO) 0.4 % (0.0-4.0); HEMATOCRIT 24.7 % (36-48); HEMOGLOBIN 7.9 g/dL (12.0-16.0); LYMPHOCYTES # (AUTO) 0.3 K/uL (2.5-16.5); MEAN CORPUSCULAR HEMOGLOBIN 26 pg (27-31); MEAN CORPUSCULAR HGB CONC 32 g/dL (33-37); MONOCYTES # (AUTO) 0.6 K/uL (0.8-1.0); MONOCYTES % (AUTO) 22.9 % (1.7-9.3); NEUTROPHILS # (AUTO) 1.5 K/uL (1.8-7.7); NEUTROPHILS % (AUTO) 61.5 % (42.2-75.2); PLATELET COUNT (AUTO) 49 K/uL (140-450); RED BLOOD CELL COUNT(AUTO) 3.05 MIL/uL (4.20-5.40); RED CELL DISTRIBUTION WIDTH 17.8 % (11.6-13.7); WHITE BLOOD COUNT (AUTO) 2.5 K/uL (4.8-10.8)
[2022-03-15 07:47] LABS: ANION GAP 12.1 (8-16); CARBON DIOXIDE 26.1 mmol/L (21-32); POTASSIUM 5.2 mmol/L (3.5-5.1)
--- NOTE | 2022-03-15 08:47 | NUR ---
PATIENT HAS BEEN SCREENED AND CATEGORIZED MODERATE NUTRITION RISK. PATIENT WILL BE SEEN WITHIN 3-5 DAYS OF ADMISSION. / [address]
--- NOTE | 2022-03-15 08:51 | NUR ---
Patient will be admitted to care of MD KAUFMAN. Admited to TELE. Will go to room 119A. Belongings list completed. Report to HAWK SHINE.
[2022-03-15 08:55] VITALS: BP 130/47
[2022-03-15] MEDS: BLOOD GLUCOSE MONITORING 1 DEV DEV FS SCH ×4 (08:55→20:13)
--- NOTE | 2022-03-15 08:55 | NUR ---
Patient's Plan of Care was discussed and reviewed with PIPELINES SUPERVISOR: MARIXA
--- NOTE | 2022-03-15 08:55 | NUR ---
PATIENT ARRIVED AT [facility] VIA GURNEY WHEEDLED BY 2 ER NURSE. RENETTA RN GAVE BED SIDE REPORT FOR CONTINUITY OF CARE. PATIENT ALERT ORIENTED ABLE TO VERBALIZED NEEDS. PATIENT RESPIRATION EVEN AND NOT LABORED NO SHORTNESS OF BREATH. ON ROOM AIR. PATIENT WITH IV LINE ON RIGHT FORE ARM GAVE 22 SALINE LOCK. CHECK VITAL SIGN, AND ORIENTED PT. TO ROOM, CALL LIGHT, TV, BATHROOM AND VISITING HOURS. CALL LIGHT WITH IN EASY REACH.
[2022-03-15] MEDS: FUROSEMIDE 20 MG/2 ML VIAL IVP SCH (09:00)
[2022-03-15] MEDS: CITALOPRAM 20 MG TAB PO SCH (09:10)
[2022-03-15] MEDS: PANTOPRAZOLE 40 MG TABEC PO SCH (09:11)
[2022-03-15] MEDS: METOPROLOL SUCCINATE 50 MG TABER PO SCH (09:11)
[2022-03-15] MEDS: SPIRONOLACTONE 50 MG TAB PO SCH ×2 (09:11→20:12)
[2022-03-15] MEDS: HYDROcodone/APAP 7.5/325 MG 1 TAB PO PRN ×2 (09:11→20:11)
[2022-03-15] MEDS: INSULIN LISPRO SLIDING SCALE 100 UNITS/ML VIAL SUBQ PRN ×4 (09:15→20:16)
[2022-03-15] MEDS: ursodioL 300 MG CAP PO SCH ×2 (09:19→20:13)
[2022-03-15] MEDS: ONDANSETRON 4 MG/2 ML VIAL IM/IVP PRN (09:50)
--- NOTE | 2022-03-15 09:51 | NUR ---
RN GOING TO GIVE HER ZOFRAN FOR COMPLAIN OF NAUSEA AND LASIX BUT PATIENT REFUSED LASIX SAID SHE DON'T TAKE LASIX. EXPLAINED THAT THAT'S ITS TO REMOVE FLUID ON HER ABDOMEN BUT STILL REFUSED
[2022-03-15] MEDS ORDERED: LIDOCAINE MPF 1% 5 ML ONE (10:24)
--- NOTE | 2022-03-15 10:34 | NUR ---
XYLOCAINE PULLED FROM PIXES BUT DR. ESPINOZA USE FOR PARACENTESIS.
--- NOTE | 2022-03-15 10:42 | NUR ---
DR. ESPINOZA AT PATIENT BED SIDE INFORM AND EXPLAIN PARACENTESIS PROCEDURE THAT HE GOING TO DO PATIENT WITH UNDERSTANDING AND GAVE CONSENT TO DOCTOR.
[2022-03-15 12:00] VITALS: BP 95/39
--- NOTE | 2022-03-15 12:00 | NUR ---
PATIENT PARACENTESIS DONE OBTAIN 8.5 LITER PATIENT ON STABLE CONDITION VERBALIZED RELIEF.
--- NOTE | 2022-03-15 14:00 | NUR ---
COMPLAIN THAT ROOM IS TOO HOT THERMOSTAT ADJUSTED. PATIENT ON STABLE CONDITION. PATIENT WITH VISITOR AT BED SIDE.
[2022-03-15 16:00] VITALS: BP 95/36
--- NOTE | 2022-03-15 16:00 | NUR ---
VITAL SIGN CHECK.
--- NOTE | 2022-03-15 18:31 | NUR ---
P.T. NOTES P.T. EVAL COMPLETED; REFER TO EVAL FOR DETAILS.
--- NOTE | 2022-03-15 19:05 | NUR ---
GAVE REPORT TO BATTERY SERVICE TECHNICIAN NURSE FOR CONTINUITY CARE.
--- NOTE | 2022-03-15 19:10 | NUR ---
Received report from morning nurse. Patient resting on bed, AO x 4, on room air. Breathing even and unlabored. No complaints at this time. Advised to call for further needs.
[2022-03-15 20:00] VITALS: BP 97/50
[2022-03-15 21:36] LABS: APPEARANCE,URINE CLEAR (CLEAR); BILIRUBIN,URINE NEGATIVE (NEGATIVE); BLOOD, URINE NEGATIVE (NEGATIVE); COLOR,URINE YELLOW (YELLOW); LEUKOCYTE ESTERASE ,URINE NEGATIVE (NEGATIVE); NITRITE, URINE NEGATIVE (NEGATIVE); UGLUCOSE 3+ (NEGATIVE)
[2022-03-15 21:48] LABS: BARBITURATE, URINE NEGATIVE ng/ml (NEG <=200); BENZODIAZEPINE, URINE POSITIVE ng/mL (NEG <=200); CANNABINOID, URINE NEGATIVE ng/mL (NEG <=50); COCAINE, URINE NEGATIVE ng/mL (NEG <=300); OPIATE, URINE POSITIVE ng/mL (NEG <=2000); PHENCYCLIDINE SCREEN,URINE NEGATIVE ng/mL (NEG <=25)
[2022-03-15] MEDS: ZOLPIDEM 5 MG TAB PO PRN (22:40)
--- NOTE | 2022-03-15 22:40 | NUR ---
Patient given ambien for sleep. No further complaints. Will continue to monitor patient.
[2022-03-16] VITALS: BP 98/50
[2022-03-16 04:00] VITALS: BP 105/49
--- NOTE | 2022-03-16 05:30 | NUR ---
BS CHECKED ORDERED. COFFEE GIVEN REQUESTED. NO COMPLAINT AT THIS TIME.
[2022-03-16] MEDS: INSULIN LISPRO SLIDING SCALE 100 UNITS/ML VIAL SUBQ PRN ×4 (06:34→22:27)
[2022-03-16] MEDS: BLOOD GLUCOSE MONITORING 1 DEV DEV FS SCH ×4 (06:36→22:00)
--- NOTE | 2022-03-16 07:00 | NUR ---
PATIENT ENDORSED TO MORNING SHIFT NURSE. PATIENT RESTING ON BED WITH NO UNTOWARD S/SX OBSERVED.
--- NOTE | 2022-03-16 07:08 | NUR ---
RECEIVED REPORT FROM NURSE OUTREACH CASE MANAGER NURSE FOR CONTINUITY OF CARE. PATIENT ASLEEP NO DISTRESS NOTED. RESPIRATION EVEN AND NOT LABORED NO SHORTNESS OF BREATH. IV SITE ON RIGHT FORE ARM SALINE LOCK. ALL SAFETY MEASURE IN PLACE.
[2022-03-16 07:13] LABS: ANION GAP 11.3 (8-16); CARBON DIOXIDE 26.4 mmol/L (21-32); CREATININE 2.1 mg/dL (0.6-1.3); POTASSIUM 5.7 mmol/L (3.5-5.1)
[2022-03-16 07:14] LABS: HEMATOCRIT 23.3 % (36-48); HEMOGLOBIN 7.4 g/dL (12.0-16.0); MEAN CORPUSCULAR HEMOGLOBIN 26 pg (27-31); MEAN CORPUSCULAR HGB CONC 32 g/dL (33-37); MEAN CORPUSCULAR VOLUME 80.9 fL (80-94); PLATELET COUNT (AUTO) 44 K/uL (140-450); RED BLOOD CELL COUNT(AUTO) 2.88 MIL/uL (4.20-5.40); RED CELL DISTRIBUTION WIDTH 18.3 % (11.6-13.7)
[2022-03-16 08:00] VITALS: BP 87/34
--- NOTE | 2022-03-16 08:00 | NUR ---
REVIEWED AND DISCUSSED PLAN OF CARE WITH ROVERTO CALVIN.
--- NOTE | 2022-03-16 08:10 | NUR ---
PATIENT WITH BLOOD PRESSURE REPORTED BY MBA INTERNSHIP LOW BELOW 90'S LOW. WHEN I CHECKED PATIENT IS ALERT ORIENTED AND DENIES DIZZINESS. COMPLAIN OF COUGHING INFORM DR. SANDERS AND HE ORDER MUCINEX Q12PRN ORDER NOTED AND CARRIED OUT.
[2022-03-16] MEDS: SPIRONOLACTONE 50 MG TAB PO SCH ×2 (08:40→22:00)
[2022-03-16] MEDS: FUROSEMIDE 20 MG/2 ML VIAL IVP SCH (08:40)
[2022-03-16] MEDS: METOPROLOL SUCCINATE 50 MG TABER PO SCH (08:40)
[2022-03-16] MEDS: guaiFENesin DM 200/20 MG-10 ML 10 ML UDC PO PRN (08:41)
[2022-03-16] MEDS: PANTOPRAZOLE 40 MG TABEC PO SCH (08:41)
[2022-03-16] MEDS: CITALOPRAM 20 MG TAB PO SCH (08:42)
[2022-03-16] MEDS: ursodioL 300 MG CAP PO SCH ×2 (08:43→22:15)
[2022-03-16] MEDS: HYDROcodone/APAP 7.5/325 MG 1 TAB PO PRN ×2 (08:48→19:42)
--- NOTE | 2022-03-16 08:49 | NUR ---
GIVEN ALL MEDICATION AND HELD LASIX, SPIROLACTONE AND METOPROLOL DUE LOW BP. PATIENT COMPLAIN OF GENERALIZED PAIN MEDICATED ORDER.
--- NOTE | 2022-03-16 09:28 | NUR ---
DR. SANDERS RESPONDED TO GIVE FLEET ENEMA X1 ORDER NOTED AND CARRIED OUT PATIENT AWARE.
--- NOTE | 2022-03-16 09:46 | NUR ---
RECEIVED CALL FROM LABS FOR WBC OF 2.[address] SANDERS.
[2022-03-16 09:47] LABS: EOSINOPHILS % (MANUAL) 1 % (0-4); LYMPHOCYTES % (MANUAL) 30 % (20-46); MONOCYTES % (MANUAL) 23 % (5-12)
[2022-03-16] MEDS ORDERED: SODIUM ZIRCONIUM CYCLOSILICATE 10 GM POWD.PACK PO SCH (09:51)
--- NOTE | 2022-03-16 11:13 | NUR ---
GIVEN LOKELMA FOR POTASSIUM 5.7 TOLERATED WELL. ASSISTED PATIENT TO TOILET.
--- NOTE | 2022-03-16 11:43 | NUR ---
GIVEN INSULIN COVERAGE FOR BLOOD SUGAR OF 188.
[2022-03-16 12:00] VITALS: BP 93/39
[2022-03-16] MEDS ORDERED: guaiFENesin 600 MG TABER PO PRN (12:00)
--- NOTE | 2022-03-16 12:47 | NUR ---
DR. ARREAGA AT BED SIDE SEEN AND EXAMINE PATIENT ORDER TO GIVE ALBUMIN 25% DUE TO LOW BLOOD PRESSURE.
[2022-03-16] MEDS ORDERED: ALBUMIN HUMAN 25% 100 ML IV SCH (13:00)
--- NOTE | 2022-03-16 13:34 | NUR ---
ALBUMIN HANG BY RN PATIENT TOLERATING IT WELL.
[2022-03-16 16:00] VITALS: BP 92/48
--- NOTE | 2022-03-16 16:00 | NUR ---
ASSISTED PATIENT TO TOILET. ALL SAFETY MEASURE IN PLACE.
--- NOTE | 2022-03-16 16:30 | NUR ---
BLOOD SUGAR CHECK PATIENT ON STABLE CONDITION. ALBUMIN STILL INFUSING. TOLERATED WELL.
--- NOTE | 2022-03-16 17:39 | NUR ---
GIVEN INSULIN COVERAGE FOR BLOOD SUGAR 253. CALL LIGHT WITH IN EASY REACH.
--- NOTE | 2022-03-16 19:20 | NUR ---
PATIENT AWAKE. GIVEN REPORT FOR YEAST CULTURE DEVELOPER NURSE FOR CONTINUITY OF CARE.
--- NOTE | 2022-03-16 19:21 | NUR ---
RECEIVED REPORT FROM AM NURSE FOR CONTINUITY OF CARE. PT IS STABLE. A&OX4 LYING IN BED JUST FINISHED DINNER.ON RM AIR W/ NO ACUTE DISTRESS. RR EVEN AND UNLABORED WITH EQUAL CHEST RISE.UP TO BATHROOM WITH CANE AND STANDBY ASSIST. GAIT STEADY. BACK TO BED . C/O 8/10 ABDOMENAL PAIN AND NAUSEA AT 194. RECEIVED NORCO7.5/325MG 1 TAB PO AND ZOFRAN 4MG/2ML IVP FOR NAUSEA. MEDS EFFECTIVE PAIN STARTED EASING AND NAUSEA RELIEVED WHEN HS MEDS GIVEN AT 2099. GO=842 COVERED WITH 2 UNITS HUMALOG INSULIN PER SLIDING SCALE. ALDACTONE 50MG PO NOT GIVEN DECREASED BP 98/42. PT'S SKIN IS INTACT. ALL SAFETY MEASURES IN PLACE. CALL LIGHT WITHIN REACH. WILL CONTINUE TO MONITOR.
[2022-03-16] MEDS: ONDANSETRON 4 MG/2 ML VIAL IM/IVP PRN (19:41)
[2022-03-16 20:00] VITALS: BP 98/42
[2022-03-16] MEDS: ALBUMIN HUMAN 25% 50 ML IV SCH (22:14)
[2022-03-16] MEDS: ZOLPIDEM 5 MG TAB PO PRN (22:16)
[2022-03-17] VITALS: BP 100/56
--- NOTE | 2022-03-17 | NUR ---
PT AWAKE ASKING FOR A SNACK. CHOCOLATE PUDDING AND A CHICKEN SALAD SANDWICH CONSUMED. NO ACUTE DISTRESS. CALL [facility] WITHIN REACH WILL CONTINUE TO MONITOR.
[2022-03-17 04:00] VITALS: BP 97/50
[2022-03-17] MEDS: ALBUMIN HUMAN 25% 50 ML IV SCH ×2 (04:49→12:55)
--- NOTE | 2022-03-17 05:30 | NUR ---
ALBUMIN HUNG INFUSED PER PUMP. RFA 22G IV S.L. FLUSHED AND PATENT. BS= 255 COVERED WITH 6 UNITS HUMALOG INSULIN PER SLIDING SCALE. AT 0630.
[2022-03-17 06:22] LABS: BASOPHILS % (AUTO) 0.8 % (0.0-2.0); EOSINOPHILS % (AUTO) 2.7 % (0.0-4.0); HEMATOCRIT 22.7 % (36-48); HEMOGLOBIN 7.3 g/dL (12.0-16.0); LYMPHOCYTES # (AUTO) 0.6 K/uL (2.5-16.5); LYMPHOCYTES % (AUTO) 35.6 % (20.5-51.1); MEAN CORPUSCULAR HEMOGLOBIN 26 pg (27-31); MEAN CORPUSCULAR HGB CONC 32 g/dL (33-37); MONOCYTES # (AUTO) 0.3 K/uL (0.8-1.0); MONOCYTES % (AUTO) 16.6 % (1.7-9.3); NEUTROPHILS # (AUTO) 0.8 K/uL (1.8-7.7); NEUTROPHILS % (AUTO) 44.3 % (42.2-75.2); PLATELET COUNT (AUTO) 40 K/uL (140-450); RED BLOOD CELL COUNT(AUTO) 2.84 MIL/uL (4.20-5.40); RED CELL DISTRIBUTION WIDTH 17.9 % (11.6-13.7)
[2022-03-17 06:32] LABS: ANION GAP 11.3 (8-16); CARBON DIOXIDE 26.5 mmol/L (21-32); CREATININE 2.1 mg/dL (0.6-1.3); POTASSIUM 4.8 mmol/L (3.5-5.1)
[2022-03-17 06:38] LABS: WHITE BLOOD COUNT (AUTO) 1.7 K/uL (4.8-10.8)
--- NOTE | 2022-03-17 06:40 | NUR ---
KRISTIN FROM LAB CALLED WITH CRITICAL RESULTS WBC-1.7, HGB-7.3, AND PLT-4.0. SENT DR SANDERS A TEXT RE REPORTED LAB VALUES. OF 729O NO RESPONSE. WILL ENDORSE TO DAY SHIFT TO FOLLOW UP.
[2022-03-17] MEDS: BLOOD GLUCOSE MONITORING 1 DEV DEV FS SCH ×2 (07:00→11:46)
[2022-03-17] MEDS: INSULIN LISPRO SLIDING SCALE 100 UNITS/ML VIAL SUBQ PRN ×2 (07:01→11:48)
--- NOTE | 2022-03-17 07:40 | NUR ---
ENDORSED REPORT TO AM NURSE FOR CONTINUITY OF CARE. PT IS STABLE. ALL NEEDS MET THROUGHOUT SHIFT.
--- NOTE | 2022-03-17 07:41 | NUR ---
RECEIVED REPORT FROM STORE SPECIALIST NURSE FOR CONTINUITY OF CARE. PT IS AWAKE IN BED. RESPIRATIONS EVEN AND UNLABORED ON ROOM AIR. NO DISTRESS NOTED. A&O4, ABLE TO COMMUNICATE NEEDS. DENIES PAIN. SKIN IS INTACT, WARM AND DRY TO TOUCH. IV SITE AT RFA 22G, SL. CALL LIGHT WITHIN REACH. SAFETY PRECAUTIONS IN PLACE. WILL CONTINUE TO MONITOR.
[2022-03-17 08:00] VITALS: BP 105/40
[2022-03-17] MEDS: guaiFENesin DM 200/20 MG-10 ML 10 ML UDC PO PRN (08:36)
[2022-03-17] MEDS: PANTOPRAZOLE 40 MG TABEC PO SCH (08:37)
[2022-03-17] MEDS: CITALOPRAM 20 MG TAB PO SCH (08:37)
[2022-03-17] MEDS: ursodioL 300 MG CAP PO SCH (08:38)
[2022-03-17] MEDS: FUROSEMIDE 20 MG/2 ML VIAL IVP SCH (08:41)
[2022-03-17] MEDS: METOPROLOL SUCCINATE 50 MG TABER PO SCH (08:41)
[2022-03-17] MEDS: SPIRONOLACTONE 50 MG TAB PO SCH (08:41)
--- NOTE | 2022-03-17 08:44 | NUR ---
ADMINISTERED SCHEDULED MORNING MEDS. NON-ADMIT LASIX, ALDACTONE AND METOPROLOL. SBP 90''S. NO DIZZINESS, NO MURPHY. PT STATED SHE FELT BETTER TODAY. PT IS COUGHING, REQUESTED MED FOR COUGH. GAVE PRN ROBITUSSIN ORDERED. PT TEACHING ABOUT MEDS GIVEN. PT VERBALIZED UNDERSTANDING.
[2022-03-17] MEDS ORDERED: LACT-103 PO (11:36)
[2022-03-17] MEDS ORDERED: SPIR50TA PO (11:36)
[2022-03-17] MEDS ORDERED: MUC600 PO (11:36)
--- NOTE | 2022-03-17 11:50 | NUR ---
BLOOD GLUCOSE CHECK DONE. BS 228. SLIDING SCALE INSULIN GIVEN. DR SANDERS SAW THE PT. INFORMED PT ABOUT HER DC ORDER. PT VERBALIZED UNDERSTANDING.
[2022-03-17 12:00] VITALS: BP 105/40
[2022-03-17 12:42] VITALS: BP 105/40
--- NOTE | 2022-03-17 12:55 | NUR ---
ALBUMIN ADMINISTERED BY FÁTIMA STEVENSON.
--- NOTE | 2022-03-17 14:40 | NUR ---
PT DC HOME. DC PAPERS DISCUSSED WITH THE PT. PT VERBALIZED UNDERSTANDING. REMOVED IV CATHETER IS INTACT. IV WRIST BAND REMOVED. ALL BELONGINGS TAKEN UPON DC. PT WHEELED OUT BY NURSE VIA WHEELCHAIR TO THE FRONT LOBBY. PT IS STABLE.
== END 2022-03-17 15:15 | disposition home or self-care (01) | DRG 441 ==
LOC: MED 10:10 → MTU 14:06
PROVIDERS: ADMIT Student in an Organized Health Care Education/Training Program; ATTEND Student in an Organized Health Care Education/Training Program
PROC: 0W9G3ZZ Drainage of Peritoneal Cavity, Percutaneous Approach (ICD-10-PCS; principal; 2022-03-14)
PROC: 0W9G3ZZ Drainage of Peritoneal Cavity, Percutaneous Approach (ICD-10-PCS; 2022-03-15)
DX: K75.81 Nonalcoholic steatohepatitis (NASH) (principal); K76.7 Hepatorenal syndrome; E44.0 Moderate protein-calorie malnutrition; R18.8 Other ascites; Z20.822 Contact with and (suspected) exposure to COVID-19; I25.10 Atherosclerotic heart disease of native coronary artery without angina pectoris; E11.22 Type 2 diabetes mellitus with diabetic chronic kidney disease; N18.30 Chronic kidney disease, stage 3 unspecified; R06.03 Acute respiratory distress; D69.6 Thrombocytopenia, unspecified; D64.9 Anemia, unspecified; I95.9 Hypotension, unspecified; Z88.5 Allergy status to narcotic agent; Z79.899 Other long term (current) drug therapy; Z88.0 Allergy status to penicillin; Z95.5 Presence of coronary angioplasty implant and graft; Z68.31 Body mass index [BMI] 31.0-31.9, adult
CPT/HCPCS: 36415; 49083; 76705; 80048; 80053; 80305; 81003; 82945; 82948; 83735; 83880; 84100; 84157; 85025; 85610; 85730; 87070; 87075; 87081; 87205; 89051; 96374; 96375; 97112; 97116; 99285; J1815; J1940; J2001; J2060; J2405; P9046; Q0092